=== PATIENT | female | born 1985 | race Hispanic/Latino ===

== ENCOUNTER 2023-07-06 09:12 | Outpatient (CLI) | payer OTHER | END 2023-07-06 09:13 | disposition home or self-care (01) | LOC: CSHULT 09:12 | PROVIDERS: ATTEND Family Medicine | DX: E05.90 Thyrotoxicosis, unspecified without thyrotoxic crisis or storm (principal); E05.00 Thyrotoxicosis with diffuse goiter without thyrotoxic crisis or storm; E04.1 Nontoxic single thyroid nodule | CPT/HCPCS: 76536 ==